=== PATIENT | female | born 1960 | race Caucasian/White ===

== ENCOUNTER 2024-02-15 06:14 | Day surgery (SDC) | payer MEDICARE, SELFPAY ==
[2024-02-15] VITALS (18 sets, daily range): BP systolic 104–153; BP diastolic 64–90; PULSE 73–105; RESP 14–19; TEMP 36–37; O2SAT 94–100; BMI 32.1
--- NOTE | 2024-02-15 06:56 | W.PM.H&PU ---
History & Physical Update History & Physical Update H&P Reviewed and patient assessed: No changes noted
[2024-02-15] MEDS: ACETAMINOPHEN 500 MG TABLET 1000 MG PO (07:12)
[2024-02-15] MEDS: OXYCODONE (CR) 10 MG TAB.ER.12H PO (07:12)
[2024-02-15] MEDS: LACTATED RINGERS 1000 ML 1,000 ML 100 ML IV ×2 (07:15→09:43)
[2024-02-15] MEDS: SODIUM CHLORIDE 0.9 % (FLUSH) 10 ML SYRINGE IVF (07:15)
[2024-02-15] MEDS: fentaNYL 100 MCG/2 ML inj IVP (07:29)
[2024-02-15] MEDS: MIDAZOLAM HCL 1 MG/ML inj IVP (07:29)
--- NOTE | 2024-02-15 07:30 | SUR.PREOP ---
TIME?OUT:?0728 PT/RN/MDA?VERIFICATION?OF?SURGICAL?SITE,?PROCEDURE,?AND?CONSENT OBTAINED?PRIOR?TO?INVASIVE?PROCEDURE.
--- NOTE | 2024-02-15 07:37 | P.NB_ITS ---
Nerve Block Nerve Block Time Seen by Provider: 07:32 Date Seen: 02/15/24 Type of block requested by surgeon for post-operative analgesia: adductor canal Side: right Time out performed: Yes Verification of patient name: Yes Verification of date of : Yes Site marking: site marked Name of person performing procedure: Tip Continuous monitoring Was continuous monitoring of O2 sat, B/P, patient services assistant, recorded every 15 minutes?: Yes Procedure Checklist: sterile prep, needles and gloves Ultrasound guided. Images saved: Yes Medications given in 5ml increments after negative aspiration: Ropivicaine %: 0.5 mL: 20 Needle gauge: 20 Decadron (mg): 10 Precedex (mcg): 25 Patient tolerated procedure well: Yes Additional comments: Needle noted adjacent to nerve Block Charges Block Charge (with Pro Fee): Femoral Nerve Use of Ultrasound Machine for Block: Yes- US Guidance/pain block
--- NOTE | 2024-02-15 07:37 | P.NB_ITS ---
Nerve Block Nerve Block Time Seen by Provider: 07:32 Date Seen: 02/15/24 Type of block requested by surgeon for post-operative analgesia: geniculars Side: right Time out performed: Yes Verification of patient name: Yes Verification of date of : Yes Site marking: site marked Name of person performing procedure: Tpi Continuous monitoring Was continuous monitoring of O2 sat, B/P, property assessment monitor, recorded every 15 minutes?: Yes Procedure Checklist: sterile prep, needles and gloves Medications given in 5ml increments after negative aspiration: Ropivicaine %: 0.5 mL: 9 Needle gauge: 25 Patient tolerated procedure well: Yes Block Charges Block Charge (with Pro Fee): Genicular Nerve Block Use of Ultrasound Machine for Block: No
--- NOTE | 2024-02-15 07:38 | W.ANESCHARGE ---
Anesthesia Charges Start Date/Time Anesthesia Start Date: 02/15/24 Anesthesia Start Time: 07:36 Stop Date/Time Anesthesia Stop Date: 02/15/24 Anesthesia Stop Time: 09:52
[2024-02-15] MEDS: TRANEXAMIC ACID 100 MG/ML INJ 1000 MG IV (07:55)
[2024-02-15] MEDS: CEFAZOLIN 2 GM in 0.9 % SODIUM CHLORIDE Mini-bag 100 ML IVPB (07:55)
--- NOTE | 2024-02-15 08:15 | W.ANESCHARGE ---
Anesthesia Charges Start Date/Time Anesthesia Start Date: 02/15/24 Anesthesia Start Time: 07:36 Stop Date/Time Anesthesia Stop Date: 02/15/24 Anesthesia Stop Time: 09:52
--- NOTE | 2024-02-15 09:18 | PM.ORPRC ---
Procedure Note Date of procedure: 02/15/24 Procedure: PREOPERATIVE DIAGNOSIS: 1. Right knee osteoarthritis, primary, severe, valgus POSTOPERATIVE DIAGNOSIS: 1. Right knee osteoarthritis, primary, severe, valgus PROCEDURE: 1. Right total knee arthroplasty - subvastus SURGEON: Fransisco Shapre MD. INCOME TAX ANALYST: MIKE Chance - Of note, a skilled healthcare administrative assistant was critical for this case to aid in patient positioning, tissue retraction, limb manipulation/positioning, and closure. ANESTHESIA: Spinal anesthetic IMPLANTS: DePuy J&J all cemented TKA - Attune PS femur size 5 regular, size 5 tibia, 5 poly spacer, 38 mm patella TOURNIQUET: 90 min at 300 torr EBL: 50 ml COMPLICATIONS: None evident INDICATIONS: The patient is a pleasant 63-year-old female who has experienced severe right knee pain and difficulty bearing weight. Workup included x-rays which revealed severe osteoarthrosis in the knee. Given the deformity, the dysfunction, and the pain, as well as the failure of nonoperative management, recommendation was made for surgery. FINDINGS: Full-thickness chondral loss diffusely throughout the lateral compartment with degenerative lateral meniscus pathology. Also significant patellofemoral chondromalacia, and to a lesser degree medial compartment involvement. Large effusion upon entering the joint. Tissue otherwise was relatively healthy without abnormality. DESCRIPTION OF PROCEDURE: Following a thorough discussion of risks, benefits, and alternatives consent was obtained and the right knee was marked. The patient was brought to the operating room and placed supine on the operating table. Induction of anesthesia was undertaken. 2 g IV Ancef and 1 g tranexamic acid was administered within 1 hr of incision preoperatively. Proper time-out was performed identifying proper patient, site, procedure. The operative extremity was prepped and draped in the appropriate sterile fashion using ChloraPrep after the patient was positioned supine with all bony prominences well padded. A longitudinal, anterior, midline skin incision was made starting approximately 3cm proximal to the superior pole of the patella and advanced distal to the tibial tubercle. A subvastus approach was utilized. A medial subperiosteal sleeve was created with knife, hammond elevator and curved osteotome. The retropatellar fatpad was resected and the synovium in the suprapatellar pouch excised to visualize the anterior femoral cortex. Femoral preparation was performed via an intramedullary guide. Step drill allowed access into the femoral canal. The distal cutting guide was placed with 6 ? of valgus and 11 mm cut on the distal femur. Femur was sized using trans epicondylar axis and Whitesides line but also an anterior referencing guide in 3? of external rotation. This found have a best fit with the sizing noted above. The 4 in 1 cutting block was then placed, and the distal femur shaped accordingly. The box cut was then created and the trial implant inserted to confirm appropriate fit. We turned our attention to the proximal tibia. Extramedullary guide was utilized for cutting with the goal of being 90 degree cut from the mechanical axis of the tibia in the varus/valgus plane utilizing tibial crest as the primary alignment. Initially a 3 mm resection was performed from the medial tibial plateau. Ultimately, balancing was achieved in both flexion and extension in both varus and valgus. The knee was able to achieve full extension as well comfortably. The patella was initially measured and found have a thickness of 22 mm. It was resected back to approximately 14 mm. It was sized to be a best fit with as noted above. This was drilled, trial placed. All trials were placed and found to have an excellent stability and balance. At this stage, trial implants were removed, the knee was thoroughly irrigated with normal saline, and the cement was mixed. After irrigation, the knee was thoroughly dried, and cement placed, with the real tibial and femoral implants placed along with the patella. Trial poly spacer was placed and confirmed to have excellent range of motion and full extension, and the real poly spacer opened and inserted. All extra cement was removed, and a 3 min Betadine soak performed. Finally, a final irrigation round with normal saline was performed. Closure performed with 0 Vicryl and #0 Stratafix for the quad tendon/retinaculum. 2-0 Vicryl for the subcutaneous and 4-0 Stratafix for subcuticular closure. Dressings were applied and the patient was awoken from anesthesia after the tourniquet deflated and transferred the PACU in stable condition. A skilled healthcare administrative assistant was critical for this case to aid in patient positioning, tissue retraction, bone exposure, limb manipulation/positioning, patient safety, and closure. PLAN: 1. Weight bear as tolerated operative extremity. 2. 23 hr perioperative antibiotics. 3. Ice. 4. PT/OT consults for ambulation assistance/mobility education. 5. Social work consult for discharge planning. 6. DVT prophylaxis with at SCDs and aspirin twice daily.
--- NOTE | 2024-02-15 09:53 | CRLHL7_ITS ---
For Patients: As a result of the Cures Act, medical imaging exams and procedure reports are released immediately into your electronic medical record. You may view this report before your referring provider. If you have questions, please contact your health care provider. INDICATION: Total knee arthroplasty. TECHNIQUE: Two view RIGHT knee portable. IMPRESSION : Prosthetic components intact. Patellar resurfacing. Anatomic alignment. No acute osseous lesions. Dictated by Milo Lang MD @ 02/15/2024 7:59:48 PM (Electronically Signed)
[2024-02-15] MEDS: ONDANSETRON 2 MG/ML inj 4 MG IVP (10:48)
[2024-02-15] MEDS: METOCLOPRAMIDE HCL 5 MG/ML INJ 10 MG IVP (11:45)
[2024-02-15] MEDS: OXYCODONE 5 MG TABLET PO (13:15)
== END 2024-02-15 14:37 | disposition home or self-care (01) ==
LOC: OR 06:15
PROVIDERS: PCP Family Medicine; Visit Provider Orthopaedic Surgery Sports Medicine
PROC: (CPT 27447; principal; 2024-02-15 07:30)
DX: M17.11 Unilateral primary osteoarthritis, right knee (principal); M21.061 Valgus deformity, not elsewhere classified, right knee; G89.18 Other acute postprocedural pain; E11.22 Type 2 diabetes mellitus with diabetic chronic kidney disease; I12.9 Hypertensive chronic kidney disease with stage 1 through stage 4 chronic kidney disease, or unspecified chronic kidney disease; N18.30 Chronic kidney disease, stage 3 unspecified; Z79.4 Long term (current) use of insulin
CPT/HCPCS: 27447; 01402; 64447; 64454; 73560; 76942; 82962; 97110; 97116; 97161; 97530; A9270; C1776; J0690; J1100; J2250; J2371; J2405; J2704; J2765; J2795; J3010; J7120

== ENCOUNTER 2024-07-30 13:45 | Outpatient (RCR) | payer MEDICARE, SELFPAY ==
--- NOTE | 2024-02-07 10:07 | PT.OPE ---
PT [facility] Eval PT [facility] Out[facility] Eval Start: 02/06/24 17:03 Freq: Status: Active Protocol: Document 02/06/24 17:03 WILL (Rec: 02/06/24 17:05 WILL [id number]) E-signed By Raghav Stoner DPT, MS Physical Therapy Outpatient Evaluation Insurance Information Recert Due Date 05/06/24 Insurance Name Medicare B,[employer] Medical Diagnosis Pre-op right partial knee arthroplasty Treating Diagnosis R knee pain, decreased R knee ROM, decreased R LE flexibility and strength, and gait dysfunction Subjective Preferred Name Azalea Villarreal Pt is a 63 y.o. female who presents to PT prior to R partial TKA on 02/15/24 at [facility] . Has struggled with worsening R knee pain over the past 5-6 years with high levels of pain since August 2023 with walking, standing and being in WBing positions. L hip pain has also led to limited activity levels. 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 Lives with her in a split-level home with 10 stairs to the 2nd floor and 8 down to the 1st floor with a railing on each flight of stairs. Hopes to return to walking for exercise , yardwork, work duties and bowling with less knee pain. PMH includes severe R knee OA. AGGR factors: walking, squatting, kneeling, standing, stair climbing, sleeping, uneven surfaces, extended sitting. ALLEV factors: ice, rest. Pain Comments 3-10/10 Current Work Status Project Account Manager Occupation Daycare provider Precautions Weight Bearing Status Weight Bear as Tolerated Therapy Limitations/Systems Review Not Limited Objective Functional Test Performed & Score LEFS: 8 Assessment Assessment/Impression Objectively pt displays decreased R LE flexibility and ROM, imbalance, gait dysfunction and B LE weakness. Good quality of R quad set with R knee ROM of 0-2-96 deg. Pt motivated to increase overall activity levels with less pain. Instructed pt in pre-op TKA with good response. She will benefit from continued skilled PT intervention to address these limitations, returning following R TKA. Primary Functional Limitations Walking, squatting, kneeling, standing, stair climbing, sleeping, uneven surfaces, extended sitting Plan of Care Rehabilitation Potential Excellent Physical Therapy Goals Short-term goals to be completed in 4 weeks: 1.Pt will display improved R LE strength as evidenced by ability to perform >12 SLR of good quality to improve quality of gait and progress to ambulation with single point cane. 2.Pt will report waking <3 times per night due to R knee pain to improve quality of sleep. Long-term goals to be completed in 10 weeks: 1.Pt will be independent and compliant with HEP 2. Pt will display improved R knee passive ROM > 0-0-120 deg to improve quality of gait. 3.Pt will display improved R hip flex, hip ABD, quad and hamstring strength >4/5 to improve quality of gait without assistive device. 4.Pt report >75% improvement in LEFS questionnaire to significantly improve shannon to daily and work activities. Coordination/Communication With Referral Source Treatment Plan/Direct Interventions Gait Training,Ice/Cold/ Vasopneumatic,Joint Mobilization,Manual Therapy, Neuromuscular Re-ed, Therapeutic Activities, Therapeutic Exercises Frequency/Duration One pre-op visit then 2 x per week for at least 10-16 visits , decreasing visit frequency, as able. Patient Will Be Discharged From Therapy Completion of LTG(s),Skills Plateau,Independent w/HEP, Independently Progressing Evaluation Billing Untimed Code Treatment Minutes 26 Complexity Moderate Certification Information Initial Certification Date 02/06/24 Ending Certification Date 05/06/24 Provider Signature Required Yes Provider Signature Shows Agreement With POC & Medical Necessity Physician NPI Number Write NPI# Here Physician Comment/Change : Physician Signature & Date Requested Please Sign/Date Here
--- NOTE | 2024-05-10 12:49 | PT.OPDN ---
PT [facility] Daily Note PT [facility] Daily Note Start: 02/06/24 17:03 Freq: Status: Active Protocol: Document 05/10/24 12:35 WILL (Rec: 05/10/24 12:49 WILL [id number]) E-signed By ANDREW oTddT, MS PT OP Daily Progress Note Visit Information Note Type Daily Note Visit Number [id number] Insurance Authorized Visits - Physician Authorized Visits Eval and treat Insurance Information Recert Due Date 05/06/24 Insurance Name Medicare B,[employer] Medical Diagnosis Pre-op right partial knee arthroplasty Treating Diagnosis R knee pain, decreased R knee ROM, decreased R LE flexibility and strength, and gait dysfunction Subjective Preferred Name Azalea Subjective Pt reports her knee felt the loosest it has since surgery but her knee and calves have been tighter since going for an ~2 mile walk yesterday. Had toe and calf spasms during the night. Sleep remains very difficult due to tightness and soreness. L hip remains sorer over the past few weeks with increased activity levels. Pain Comments Date of Surgery (If applicable) 02/15/24 Precautions Weight Bearing Status Weight Bear as Tolerated Home Exercise Home Exercise Comments Access Code: [email or web address] URL: [email or web address] Date: 04/30/2024 Prepared by: Joe Adames Exercises - Standing Knee Flexion Stretch on Step - 2-3 x daily - 7 x weekly - 1-2 sets - 10- 20 reps - Sitting Heel Slide with Towel - 3 x daily - 7 x weekly - 2 sets - 2 minutes hold - Prone Knee Extension Overpressure - 3 x daily - 7 x weekly - 1 sets - 5 minutes hold Objective Other/Pertinent Objective R knee passive ROM 0-5-109 at end of session Gait: without an AD antalgic pattern with decreased L toe off, decreased L stride length and decreased velocity. Improved quality with corrections. Patient Instructed in Risks/Benefits Yes Therapeutic Exercise Therapeutic Exercise Minutes (minutes) 46 Therapeutic Exercise: To Restore Leg press progressed 75# 10 x Functional Status 3 seat # 8 with rest in forced flex Bike - 6 minutes seat 10 and 6 minutes seat 9. Seated knee flexion stretch with L LE overpressure Long sitting knee extension stretch with 4# ankle weight across knee x 4' Standing knee flexion mobilization with foot on step 2 x 15 Prone leg hang with OP x 2 minutes Supine flex with overpressure Walking october 14' x 4, 2 sets Backwards walking ' x 4, 2 sets HS curl machine 20# 12 x 3 Progressed standing TKE 3 plates on CC 10 x 3 with fatigue Progressed standing hip ABD YTB above ankles 8 x 3 Manual Therapy Techniques Manual Therapy Minutes (minutes) 14 Manual Therapy Techniques Knee AP mobs G3-4 TPR distal R quad Arm bar overpressure flex stretching in short sitting Treatment Minutes Timed Code Treatment Minutes 60 Total Treatment Time 60 Billing Units Manual Therapy Units 1 Therapeutic Exercise Units 3 Assessment/Impression Assessment/Impression Pt continues to struggle with limited flex and ext ROM but was able to again achieve 108- 109 deg flex passive ROM at the end of today's session. She responded well to MT and passive stretching with decreased tightness following. Emphasized importance of increased HEP performance despite increased activity levels, especially with ROM stretching since flex and ext impairments remain. Pt responded well again to long duration low level flex stretching after biking today. Reviewed importance of pt to gradually progress amb without a SPC due to compensations. Today's session again focused on improving ROM and we will progress strength in future sessions at this stage in her recovery. Pt will benefit from continued skilled PT services , progressing as able. Plan of Care Physical Therapy Goals Short-term goals to be completed in 4 weeks: 1.Pt will display improved R LE strength as evidenced by ability to perform >12 SLR of good quality to improve quality of gait and progress to ambulation with single point cane. 2.Pt will report waking <3 times per night due to R knee pain to improve quality of sleep. Long-term goals to be completed in 10 weeks: 1.Pt will be independent and compliant with HEP 2. Pt will display improved R knee passive ROM > 0-0-120 deg to improve quality of gait. 3.Pt will display improved R hip flex, hip ABD, quad and hamstring strength >4/5 to improve quality of gait without assistive device. 4.Pt report >75% improvement in LEFS questionnaire to significantly improve shannon to daily and work activities. Daily Plan of Care Continue per POC Recertification Information Initial Certification Date 02/06/24 Recertification Start Date 05/06/24 Recertification Due Date 08/04/24 Reasons to Continue Skilled Therapy See assessment Rehabilitation Potential Good due to extent of tightness and being nearly 3 months post-op with limited flex and ext ROM. Continued Plan of Care and Interventions Continue 2x per week for 8-14 additional PT visits with interventions including therapeutic exercise, manual therapy, gait training and NM re-ed. Provider Signature Shows Agreement With POC & Medical Necessity Physician Comment/Change Comment or Changes Physician NPI Number #
== END 2024-11-27 23:59 | disposition home or self-care (01) ==
PROVIDERS: PCP Family Medicine; Visit Provider Orthopaedic Surgery Sports Medicine
DX: M17.11 Unilateral primary osteoarthritis, right knee (principal); Z96.651 Presence of right artificial knee joint; Z51.89 Encounter for other specified aftercare
CPT/HCPCS: 97016; 97110; 97116; 97140; 97162

== ENCOUNTER 2025-06-03 06:01 | Day surgery (SDC) | payer MEDICARE, SELFPAY ==
[2025-06-03] VITALS (24 sets, daily range): BP systolic 112–149; BP diastolic 62–104; PULSE 77–100; RESP 12–16; TEMP 36.1–36.7; O2SAT 89–100; BMI 30.8
[2025-06-03] MEDS: LACTATED RINGERS 1000 ML 1,000 ML 100 ML IV ×3 (06:30→11:00)
[2025-06-03] MEDS: OXYCODONE (CR) 10 MG TAB.ER.12H PO (06:30)
[2025-06-03] MEDS: ACETAMINOPHEN 500 MG TABLET 1000 MG PO (06:30)
[2025-06-03] MEDS: SODIUM CHLORIDE 0.9 % (FLUSH) 10 ML SYRINGE IVF (06:30)
--- NOTE | 2025-06-03 06:53 | W.PM.H&PU ---
History & Physical Update History & Physical Update H&P Reviewed and patient assessed: No changes noted
[2025-06-03] MEDS: MIDAZOLAM HCL 1 MG/ML inj IVP (07:03)
--- NOTE | 2025-06-03 07:14 | SUR.PREOP ---
TIME?OUT:?0703 PT/RN/MDA?VERIFICATION?OF?SURGICAL?SITE,?PROCEDURE,?AND?CONSENT OBTAINED?PRIOR?TO?INVASIVE?PROCEDURE.
--- NOTE | 2025-06-03 07:15 | CRLHL7_ITS ---
For Patients: As a result of the Century Cures Act, medical imaging exams and procedure reports are released immediately into your electronic medical record. You may view this report before your referring provider. If you have questions, please contact your health care provider. INDICATION: Left hip arthroplasty TECHNIQUE: Intraoperative C-arm fluoroscopy. IMPRESSION: Intraoperative C-arm fluoroscopy was provided. Fluoroscopy time 34 seconds. Two images were captured. Dictated by Dannie Lux MD @ 06/18/2025 8:34:28 AM (Electronically Signed)
--- NOTE | 2025-06-03 07:31 | W.PM.NB ---
Nerve Block Nerve Block Time Seen by Provider: 07:05 Date Seen: 06/03/25 Type of block requested by surgeon for post-operative analgesia: MARYELLEN/LFCN Side: left Time out performed: Yes Verification of patient name: Yes Verification of date of : Yes Site marking: site marked Name of person performing procedure: Tip Continuous monitoring Was continuous monitoring of O2 sat, B/P, monitoring and evaluation advisor, recorded every 15 minutes?: Yes Procedure Checklist: sterile prep, needles and gloves Ultrasound guided. Images saved: Yes Medications given in 5ml increments after negative aspiration: Ropivicaine %: 0.5 mL: 30 Needle gauge: 20 Precedex (mcg): 25 Patient tolerated procedure well: Yes Additional comments: Needle noted below psoas tendon needle noted adjacent to LFCN Block Charges Block Charge (with Pro Fee): Other Periph Nerve Block Use of Ultrasound Machine for Block: Yes- US Guidance/pain block
--- NOTE | 2025-06-03 07:32 | P.ANES_ITS ---
Anesthesia Charges Start Date/Time Anesthesia Start Date: 06/03/25 Anesthesia Start Time: 07:10 Stop Date/Time Anesthesia Stop Date: 06/03/25 Anesthesia Stop Time: 09:30 Coding CPT Codes CPT Codes: ANESTH HIP ARTHROPLASTY - 19504 ([id number]) P2 - PATIENT W/MILD SYST DISEASE, QK - QUALITY CONTROL INSPECTOR HEADING 2-4 CNCRNT ANES PROC, QX - INTERNAL GRINDER SVC W/ MD MED DIRECTION
--- NOTE | 2025-06-03 07:32 | W.ANESCHARGE ---
Anesthesia Charges Start Date/Time Anesthesia Start Date: 06/03/25 Anesthesia Start Time: 07:10 Stop Date/Time Anesthesia Stop Date: 06/03/25 Anesthesia Stop Time: 09:30 Coding CPT Codes CPT Codes: ANESTH HIP ARTHROPLASTY - 95905 ([id number]) P2 - PATIENT W/MILD SYST DISEASE, QK - YARD SUPERVISOR 2-4 CNCRNT ANES PROC, QX - FENCE POST DRIVER SVC W/ MD MED DIRECTION
[2025-06-03] MEDS: TRANEXAMIC ACID 100 MG/ML INJ 1000 MG IV (07:41)
--- NOTE | 2025-06-03 08:32 | P.ORPRC_ITS ---
Procedure Note Date of procedure: 06/03/25 Procedure: PREOPERATIVE DIAGNOSIS: 1. Left hip osteoarthritis, severe, primary POSTOPERATIVE DIAGNOSIS: 1. Left hip osteoarthritis, severe, primary PROCEDURE: 1. Left total hip arthroplasty-anterior approach 2. Intraoperative fluoroscopy interpreted by Fransisco Sharpe M.D. for intraoperative evaluation of implant positioning, alignment, leg length, and offset. Fluoroscopy time was 34.3 seconds. SURGEON: Fransisco Sharpe MD. NAPPER GRINDER: Milo Rodriguez PA-C; MIKE Chance - Of note, a skilled investigative assistant was critical for this case to aid in patient positioning, tissue retraction, limb manipulation/positioning, dislocation/relocation, patient safety, and closure. ANESTHESIA: Spinal anesthetic EBL: 250 ml IMPLANTS: DePuy J&J uncemented total hip Roby cup size 48, hole eliminator, +4 neutral liner Actis stem, high offset, size 6 +1 mm ceramic 32mm head. COMPLICATIONS: None evident INDICATIONS: The patient is a pleasant 65-year-old female who has experienced severe left hip pain and difficulty bearing weight. Workup included x-rays which revealed severe osteoarthrosis in the hip. Given the deformity, the dysfunction, and the pain, as well as the failure of nonoperative management, recommendation was made for surgery. FINDINGS: Full-thickness chondral loss diffusely throughout the femoral head and acetabulum. Osteophytes around the femoral head/neck junction and perimeter of the acetabulum. The labrum had become calcified. Moderate effusion upon entering the joint. DESCRIPTION OF PROCEDURE: Following a thorough discussion of risks, benefits, and alternatives consent was obtained and the left hip was marked. The patient was brought to the operating room and placed supine on the operating table. Induction of anesthesia was undertaken. 2 g IV Ancef and 1 g tranexamic acid was administered within 1 hr of incision preoperatively. Proper time-out was performed identifying proper patient, site, procedure. The operative extremity was prepped and draped in the appropriate sterile fashion using ChloraPrep after the patient was positioned on the [place] table with head in neutral alignment and all bony prominences well padded. C-arm fluoroscopic imaging was utilized to confirm proper pelvis rotation and position, and to get true AP films of both the contralateral left, and the affected left hip. This is for comparison. A longitudinal incision was made starting approximately 1 cm distal to the ASIS, and 2-3 cm lateral. The incision was extended distally aiming toward the fibular head. Sharp incision through skin and bovie cautery through the subcutaneous tissue allowed identification of the TFL fascia. This was sharply divided, and the fascia bluntly released from the muscle fibers as we dissected medial. Upon coming to the medial border, we were able to retract the TFL laterally, and penetrated the deeper fascia and identify the crossing circumflex vessels. These were ligated/cauterized. The rectus was elevated from the capsule, and retractors placed laterally and medially along the femoral neck to help with visualization of the capsule. We then performed an inverted T capsulotomy. The capsule was tagged for later repair. Retractors were placed inside the capsule. The femoral neck was visualized after releasing medially down to the lesser trochanter, along the saddle laterally, and up onto the acetabulum. The femoral neck cut was made in line with our preoperative templating. The head was removed in a single piece, and sized. We turned our attention to acetabular preparation. Initially, the labrum was resected from around the perimeter, the pulvinar was excised, allowing us to visualize the false wall. We started the reaming with a 43 mm reamer. This was medialized down to the true wall. We then enlarged our reamers sequentially up to one size less than the selected cup size. We trialed at the same size and found it to have an excellent fit. The selected cup was then opened, inserted, and impacted in line with the goal of 40-45? of abduction, and 20-25? of anteversion. This was confirmed on C-arm fluoroscopic imaging to be in the appropriate/goal position. Once the cup was placed we placed a hole eliminator and a liner consistent with preop planning. Attention was turned to the femoral preparation. The limb was extended, externally rotated, and adducted. The posteromedial capsule was released, as retractors were placed allowing excellent access to the proximal femur. Initially a experimental box tester was followed by canal finder followed by various broaches. We broached sequentially up to size noted above, found it to have excellent rotational control, and trialing various heads and necks, revealed that appropriate neck offset, and the above noted head size provided the greatest stability, and confucianist of length, and offset. C-arm fluoroscopic imaging confirmed position of the stem, as well as leg lengths, which were compared with the pre procedure all fluoroscopic images. Trial implants were removed, the real femoral stem inserted, as was the ceramic head. After reducing, the leg was placed through range of motion and stability was confirmed anterior, posterior, and lateral. A 3 min Betadine soak was then performed, and thorough irrigation with normal saline followed. Closure of the capsule was performed with #1 PDS. Bleeding was confirmed to be controlled at this stage, and the TFL fascia was closed with #0 strata fix. Subcutaneous, and subcuticular closure was performed with 2-0 Stratafix and 4-0 Stratafix, respectively. Dressings were applied, and the patient was awoken from anesthesia and transferred the PACU in stable condition. A skilled investigative assistant was critical for this case to aid in patient positioning, tissue retraction, proximal femur exposure, limb manipulation/positioning, dislocation/relocation, patient safety, and closure. PLAN: 1. Weight bear as tolerated operative extremity. 2. 23 hr perioperative antibiotics. 3. Ice. 4. PT/OT consults for ambulation assistance/mobility education. 5. Social work consult for discharge planning. 6. DVT prophylaxis with at SCDs and Xarelto x5 days followed by aspirin for a total of 1 month.
--- NOTE | 2025-06-03 09:31 | P.ANES_ITS ---
Anesthesia Charges Start Date/Time Anesthesia Start Date: 06/03/25 Anesthesia Start Time: 07:10 Stop Date/Time Anesthesia Stop Date: 06/03/25 Anesthesia Stop Time: 09:30 Coding CPT Codes CPT Codes: ANESTH HIP ARTHROPLASTY - 13610 ([id number]) P2 - PATIENT W/MILD SYST DISEASE, QK - INTERNATIONAL MARKETING MANAGER 2-4 CNCRNT ANES PROC, QX - SUSTAINABILITY PROJECT COORDINATOR SVC W/ MD MED DIRECTION
--- NOTE | 2025-06-03 09:31 | W.ANESCHARGE ---
Anesthesia Charges Start Date/Time Anesthesia Start Date: 06/03/25 Anesthesia Start Time: 07:10 Stop Date/Time Anesthesia Stop Date: 06/03/25 Anesthesia Stop Time: 09:30 Coding CPT Codes CPT Codes: ANESTH HIP ARTHROPLASTY - 44646 ([id number]) P2 - PATIENT W/MILD SYST DISEASE, QK - CABLE WAY OPERATOR 2-4 CNCRNT ANES PROC, QX - HOTEL SUPPLIES SALESPERSON SVC W/ MD MED DIRECTION
--- NOTE | 2025-06-03 09:33 | CRLHL7_ITS ---
For Patients: As a result of the Cures Act, medical imaging exams and procedure reports are released immediately into your electronic medical record. You may view this report before your referring provider. If you have questions, please contact your health care provider. Indication: Postop Technique: AP hip centered pelvis and lateral view left hip Findings/Impression: Hardware from a left total hip arthroplasty is in satisfactory position. Bone alignment is normal. No sign of acute fracture. Postop changes are within normal limits. Dictated by Franklin Smith MD @ 06/03/2025 10:43:14 AM (Electronically Signed)
[2025-06-03] MEDS: INSULIN REGULAR, HUMAN 100 UNIT/ML VIAL SUBCUT (10:04)
--- NOTE | 2025-06-03 10:29 | SUR.PHASEI ---
Patient received 5 units of regular insulin after discussion with MDA. 50 mcg of Fentanyl given for pain. Patient meets discharge criteria from PACU
[2025-06-03] MEDS: ONDANSETRON 2 MG/ML inj 4 MG IVP (10:50)
[2025-06-03] MEDS: PROCHLORPERAZINE 5 MG/ML VIAL IVP (11:55)
[2025-06-03] MEDS: IBUPROFEN 200 MG TABLET 600 MG PO (13:01)
[2025-06-03] MEDS: ACETAMINOPHEN 500 MG TABLET PO (13:35)
--- NOTE | 2025-06-03 13:36 | SUR.PHASEII ---
Pt up to restroom and attempted to void. Not able to urinate at this time. Will try again later. Pt having more pain when up, rates 8 out of 10 after up. 1000 mg Tylenol given before OT/PT (in addition to oxycodone and ibuprofen given earlier)
[2025-06-03] MEDS: INSULIN REGULAR, HUMAN 100 UNIT/ML VIAL 6 UNIT SUBCUT (14:45)
== END 2025-06-03 15:30 | disposition home or self-care (01) ==
LOC: OR 06:03
PROVIDERS: PCP Family Medicine; Visit Provider Orthopaedic Surgery Sports Medicine
PROC: (CPT 27130; principal; 2025-06-03 07:15)
DX: M16.12 Unilateral primary osteoarthritis, left hip (principal); G89.18 Other acute postprocedural pain; I12.9 Hypertensive chronic kidney disease with stage 1 through stage 4 chronic kidney disease, or unspecified chronic kidney disease; E11.22 Type 2 diabetes mellitus with diabetic chronic kidney disease; N18.31 Chronic kidney disease, stage 3a; Z79.4 Long term (current) use of insulin
CPT/HCPCS: 27130; 01214; 36415; 64450; 73501; 76000; 76942; 82962; 86850; 86900; 86901; 97110; 97116; 97161; 97165; 97535; A9270; C1776; J0690; J0780; J1100; J1815; J2250; J2371; J2405; J2704; J2795; J3010; J3490; J7120